=== PATIENT | female | born 2005 | race Caucasian/White ===

== ENCOUNTER 2024-02-01 12:55 | Emergency (ER) | payer OTHER, SELFPAY ==
[2024-02-01] VITALS (12 sets, daily range): BP systolic 116–147; BP diastolic 60–98; PULSE 67–90; RESP 17–21; TEMP 36.6; O2SAT 97–100; BMI 30.8
--- NOTE | 2024-02-01 13:19 | DI.CT.S_ITS ---
PROCEDURE: CT STROKE INDICATIONS: Positive BE-FAST, Stroke symptoms TECHNIQUE: Noncontrast 4.5 mm thick angled axial sections acquired from the foramen magnum to the vertex, with coronal reformats. For radiation dose reduction, the following was used: automated exposure control, adjustment of mA and/or kV according to patient size. COMPARISON: None. FINDINGS: Image quality: Mild streak artifact can be seen through the skull base. CSF spaces: Basal cisterns are patent. No extra-axial fluid collections. Ventricles are normal in size and shape. Brain: No midline shift. No intracranial masses or hemorrhage. Apple-white matter interface is normal. Skull and face: Calvarium and visualized facial bones are intact, without suspicious lesions. Sinuses: Visualized sinuses and mastoids are clear. IMPRESSION: No acute intracranial hemorrhage is seen. No acute intracranial pathology. Note: Case discussed by telephone with Dr. Almaraz at 1:47 p.m. [place] time on February 01, 2024. This study fulfills neurological imaging criteria for inclusion or exclusion of acute stroke therapies based on available published neurological imaging guidelines. Dictated by: Toñito Sherman M.D. on 02/01/2024 at 12:46 Approved by: Toñito Sherman M.D. on 02/01/2024 at 12:47
--- NOTE | 2024-02-01 13:19 | DI.CT.S_ITS ---
PROCEDURE: CT ANGIO HEAD AND NECK INDICATIONS: blurry vision right eye TECHNIQUE: After the administration of intravenous contrast, 1 mm thick sections acquired from the aortic arch through the [place] of [place]. 3-dimensional yukcbpu-neskyvkyy-bvtpxukdss (MIP) and/or volume rendering reformats were acquired of the central intracranial vasculature and neck separately. For radiation dose reduction, the following was used: automated exposure control, adjustment of mA and/or kV according to patient size. COMPARISON: [facility], CT, CT STROKE, 02/01/2024, 13:30. FINDINGS: Image quality: Diagnostic. BRAIN: CSF spaces: Ventricles are normal in size and shape. Basal cisterns are patent. No extra-axial fluid collections. Brain: No significant abnormality of the brain can be seen. Skull and face: Calvarium and facial bones appear intact, without suspicious lesions. Orbits appear normal. Sinuses: Sinuses and mastoids are clear. HEAD CT ANGIOGRAPHY: Anterior circulation: Intracranial internal carotid arteries are normal in size and flow. The flow within the paired anterior cerebral arteries is normal and symmetric. The flow within the middle cerebral arteries is normal and symmetric. The anterior communicating artery is seen. No aneurysms are seen. Posterior circulation: Visualized portions of the vertebral arteries demonstrate normal caliber, and join to form a normal appearing basilar artery. Flow within the posterior cerebral arteries is normal and symmetric. No aneurysms are seen. NECK CT ANGIOGRAPHY: Carotid system: The great vessels demonstrate a conventional anatomy as they arise from the aortic arch. The origins of the common carotid arteries appear patent. The common carotid arteries demonstrate normal caliber and courses. The bifurcation regions are both widely patent. The internal carotid arteries demonstrate normal calibers and courses. Posterior circulation: The origins of the vertebral arteries both appear widely patent. The more superior extracranial portions of both vertebral arteries also demonstrate normal courses and calibers. They join to form a normal appearing basilar artery. Soft tissues: Visualized neck soft tissues demonstrate no suspicious abnormalities. Bones: No suspicious bony lesions. Visualized cervical spine appears normally aligned. IMPRESSION: No significant intracranial arterial abnormality is seen. No significant abnormality is seen within the arteries of the neck. Any quantitative measurements of stenosis were performed using NASCET criteria. Dictated by: Robinson Jimenez M.D. on 02/01/2024 at 13:57 Approved by: Robinson Jimenez M.D. on 02/01/2024 at 13:59
--- NOTE | 2024-02-01 13:32 | ED.NEUROSD ---
HPI - Neuro Symptoms/Deficit General Chief Complaint: Eye Problems Stated Complaint: blurry, tunnel vision; sent by [facility] Time Seen by Provider: 02/01/24 13:22 Source: patient Mode of arrival: Ambulatory History of Present Illness HPI Narrative: Last well known 11:00 a.m. today. Patient here with sister. Patient had sudden onset bilateral blurriness. Without any headache or eye pain. It localized to the right eye. Now it has resolved. Patient's states had similar episode 2 months ago and seen at walk-in clinic. Denies any headache slurred speech facial droop numbness tingling or weakness to the limbs. No history high blood pressure hypercholesteremia. No family history of stroke with primary family. Patient is asymptomatic at this time. LMP now. Patient states recent stressors include boyfriend that just completed chemotherapy for cancer. Fast exam is negative On Anticoagulants: No Related Data Home Medications Medication Instructions Recorded Confirmed etonogestrel 68 mg subdermal mg subdermal 02/01/24 implant (Nexplanon) Allergies Allergy/AdvReac Type Severity Reaction Status Date / Time No Known Drug Allergies Allergy Verified 02/01/24 13:15 Review of Systems Review of Systems Narrative: GENERAL: negative chills, fatigue, malaise, fever, sweats. HEENT: negative sinus pain, ear pain, sore throat RESPIRATORY: negative dyspnea, cough CARDIOVASCULAR: negative chest pain, palpitations GASTROINTESTINAL: negative nausea, vomiting, abdominal pain : negative dysuria, frequency, hematuria MUSCULOSKELETAL: negative muscle or bony pain SKIN: negative rash, skin lesions NEUROLOGIC: negative weakness, numbness, positive blurry vision ROS Unobtainable: All systems reviewed & are unremarkable except as noted in HPI and below Hematologic/Lymphatic On Anticoagulants: No Patient History Social History Smoking Status: Never smoker Smoking Status: Never smoker alcohol intake frequency: other Substance Use Type: marijuana Exam Narrative Exam Narrative: GENERAL: in no distress, not toxic not dyspneic HEAD: Normocephalic. EYES: Pupils equal round PERRLA, no photophobia no papilledema, denies any blurry vision or double vision at this time. Able to isolate each eye and denies any blurry vision or double vision individually or together. ENT: Mucous membranes moist. NECK: Trachea midline. CARDIOVASCULAR: Regular rate and rhythm RESPIRATORY: Clear to auscultation. Breath sounds equal bilaterally. No wheezes, rales, or rhonchi. GASTROINTESTINAL: Abdomen soft, non-tender EXTREMITIES: No gross deformities. BACK: No flank tenderness. NEURO: AOx4. Clear speech no facial droop light touch intact bilateral face hands and legs. Strong equal stamp mounter. Negative pronator drift. Finger-nose intact bilaterally. SKIN: Warm and dry PSYCH: Not anxious, is cooperative Initial Vital Signs Initial Vital Signs: Vital Signs Temperature 98 F 02/01/24 13:12 Pulse Rate 70 02/01/24 13:12 Respiratory Rate 17 02/01/24 13:12 Blood Pressure 147/88 H 02/01/24 13:12 Pulse Oximetry 97 02/01/24 13:12 Oxygen Delivery Method Room Air 02/01/24 13:12 Scores NIH Stroke Scale Level of Conciousness: Alert, keenly responsive Ask month/age: Answers both questions correctly. Open/close eyes, close hand: Performs both tasks correctly Best gaze horizontal: Normal Visual martinez: No visual loss Facial palsy: Normal symetrical movement Left arm drift: No drift for full 10 sec Right arm drift: No drift for full 10 sec Left leg drift: No drift for full 5 sec Right leg drift: No drift for full 5 sec Limb ataxia: Absent Sensory on face/arms/legs: Normal, no sensory loss Best language: No aphasia, normal Dysarthria: Normal Extinction or inattention: No abnormality Total NIH Stroke scale score: 0 Course Orders Ordered: Discontinued Medications Lactated Ringer's (Lactated Ringers) 500 mls @ 1,000 mls/hr IV BOLUS ONE Stop: 02/01/24 14:03 Sodium Chloride (Normal Saline 0.9%) 500 mls @ 1,000 mls/hr IV BOLUS ONE Stop: 02/01/24 14:04 Last Infusion: 02/01/24 14:37 Dose: Infused Documented By: Admin: 02/01/24 14:06 Dose: 1,000 mls/hr Documented By: Ondansetron HCl (Ondansetron 4 Mg/2 Ml Inj) 4 mg IV NOW PRN PRN Reason: Nausea And Vomiting Ondansetron HCl (Ondansetron 4 Mg Odt) 4 mg SL NOW PRN PRN Reason: Nausea And Vomiting Vital Signs Vital signs: Vital Signs - 8 hr 02/01/24 13:12 02/01/24 13:23 02/01/24 13:23 Temperature 98 F Pulse Rate 70 Respiratory Rate 17 Blood Pressure 147/88 H 137/98 H Pulse Oximetry 97 97 Oxygen Delivery Method Room Air 02/01/24 13:37 02/01/24 14:01 02/01/24 14:02 Temperature Pulse Rate 77 86 90 Respiratory Rate 21 Blood Pressure Pulse Oximetry 100 98 99 Oxygen Delivery Method 02/01/24 14:02 02/01/24 14:30 02/01/24 14:53 Temperature Pulse Rate 89 74 Respiratory Rate Blood Pressure 128/68 Pulse Oximetry 98 99 Oxygen Delivery Method 02/01/24 15:00 02/01/24 15:01 02/01/24 15:01 Temperature Pulse Rate 83 67 Respiratory Rate Blood Pressure 121/60 Pulse Oximetry 100 99 Oxygen Delivery Method MDM - Neuro Symptoms/Deficit Lab Data 02/01/24 13:27 02/01/24 13:27 Labs: Lab Results 02/01/24 02/01/24 Range/Units 13:27 14:02 WBC 10.1 (4.5-11.0) X10^3/uL RBC 4.69 (4.0-5.2) X10^6/uL Hgb 13.9 (12.0-16.0) g/dL Hct 40.1 (36-46) % MCV 85.4 (80-100) fL MCH 29.5 (26-34) PG MCHC 34.6 (30-36) % RDW 13.4 (11.6-14.8) % Plt Count 334 (150-400) X10^3/uL Neut % (Auto) 69.8 (50-75) % Lymph % (Auto) 23.8 L (25-40) % Lamar % (Auto) 5.3 (3-14) % Eos % (Auto) 0.9 L (2-4) % Baso % (Auto) 0.2 (0-2) % Neut # (Auto) 7100 H (1451-5480) /uL Lymph # (Auto) 2400 (7318-7510) /uL Lamar # (Auto) 500 (0-900) /uL Eos # (Auto) 100 (0-450) /uL Baso # (Auto) 0 (0-100) /uL PT 11.4 (9.4-12.5) SECONDS INR 1.0 (0.9-1.3) APTT 35 (25.1-36.5) SECONDS Sodium 140 (137-145) mmol/L Potassium 3.9 (3.4-5.1) mmol/L Chloride 107 (98-107) mmol/L Carbon Dioxide 25 (22-32) mmol/L BUN 13 (7-17) mg/dL Creatinine 0.67 (0.52-1.04) mg/dL Estimated GFR > 60 (>60) mL/min BUN/Creatinine Ratio 19.4 (6-22) Glucose 96 (70-100) mg/dL Calcium 9.9 (8.4-10.2) mg/dL Magnesium 1.9 (1.6-2.3) mg/dL Total Bilirubin 0.6 (0.2-1.3) mg/dL AST 52 H (14-36) IU/L ALT 34 (<35) IU/L Alkaline Phosphatase 74 (38-126) U/L Total Creatine Kinase 157 H (30-135) U/L Troponin I < 0.012 (0.01-0.034) ng/mL Total Protein 8.4 H (6.3-8.2) g/dL Albumin 5.3 H (3.5-5.0) g/dL Globulin 3.1 (1.7-4.1) g/dL Albumin/Globulin Ratio 1.7 (1.0-2.8) U Opiates 300ng/mL cut Negative (Negative) Ur Oxycodone Screen Negative (Negative) Urine Methadone Screen Negative (Negative) Ur Barbiturates Screen Negative (Negative) U Tricyclic Antidepress Negative (Negative) Ur Phencyclidine Scrn Negative (Negative) Ur Amphetamines Screen Negative (Negative) U Methamphetamines Scrn Negative (Negative) Ur MDMA Scrn (Ecstasy) Negative (Negative) U Benzodiazepines Scrn Negative (Negative) Urine Cocaine Screen Negative (Negative) U Marijuana (THC) Screen Positive H (Negative) Urine pH Normal (Normal) Urine Specific [place] Normal (Normal) Ur Creatinine Normal (Normal) Point of Care Testing Test Results Negative Urine Dip Bedside Urine Glucose Negative Bedside Urine Bilirubin - Negative Bedside Urine Ketone - Negative Urine Specific [place] 1.005 Bedside Urine Occult Blood - Negative Bedside Urine pH 7.0 Bedside Urine Protein - Negative Bedside Urine Urobilinogen - Negative Bedside Urine Nitrite - Negative Bedside Urine Leukocytes - Negative Esterase Imaging Data CT scan - head: Radiologist's Impression: [address] [address] [address] Scan Report Signed Patient: Abby Hoyt MR#: [id number] : 2005 Acct:[id number] Age/Sex: 18 / F Date of Service: 02/01/24 Loc: ED Accession Number: [id number] Procedure: CT Stroke Ordering Provider: Tunde Almaraz MD PROCEDURE: CT STROKE INDICATIONS: Positive BE-FAST, Stroke symptoms TECHNIQUE: Noncontrast 4.5 mm thick angled axial sections acquired from the foramen magnum to the vertex, with coronal reformats. For radiation dose reduction, the following was used: automated exposure control, adjustment of mA and/or kV according to patient size. COMPARISON: None. FINDINGS: Image quality: Mild streak artifact can be seen through the skull base. CSF spaces: Basal cisterns are patent. No extra-axial fluid collections. Ventricles are normal in size and shape. Brain: No midline shift. No intracranial masses or hemorrhage. Apple-white matter interface is normal. Skull and face: Calvarium and visualized facial bones are intact, without suspicious lesions. Sinuses: Visualized sinuses and mastoids are clear. IMPRESSION: No acute intracranial hemorrhage is seen. No acute intracranial pathology. Note: Case discussed by telephone with Dr. Almaraz at 1:47 p.m. [place] time on February 01, 2024. This study fulfills neurological imaging criteria for inclusion or exclusion of acute stroke therapies based on available published neurological imaging guidelines. Dictated by: Toñito Sherman M.D. on 02/01/2024 at 12:46 Approved by: Toñito Sherman M.D. on 02/01/2024 at 12:47 CTA - brain/neck: Radiologist's Impression: [address] [address] [address] Scan Report Signed Patient: Abby Hoyt MR#: [id number] : 2005 Acct:[id number] Age/Sex: 18 / F Date of Service: 02/01/24 Loc: ED Accession Number: [id number] Procedure: CT angio head and neck Ordering Provider: Tunde Almaraz MD PROCEDURE: CT ANGIO HEAD AND NECK INDICATIONS: blurry vision right eye TECHNIQUE: After the administration of intravenous contrast, 1 mm thick sections acquired from the aortic arch through the [place] of [place]. 3-dimensional iwhbuky-namtdjurm-vfvcxeefrb (MIP) and/or volume rendering reformats were acquired of the central intracranial vasculature and neck separately. For radiation dose reduction, the following was used: automated exposure control, adjustment of mA and/or kV according to patient size. COMPARISON: [facility], CT, CT STROKE, 02/01/2024, 13:30. FINDINGS: Image quality: Diagnostic. BRAIN: CSF spaces: Ventricles are normal in size and shape. Basal cisterns are patent. No extra-axial fluid collections. Brain: No significant abnormality of the brain can be seen. Skull and face: Calvarium and facial bones appear intact, without suspicious lesions. Orbits appear normal. Sinuses: Sinuses and mastoids are clear. HEAD CT ANGIOGRAPHY: Anterior circulation: Intracranial internal carotid arteries are normal in size and flow. The flow within the paired anterior cerebral arteries is normal and symmetric. The flow within the middle cerebral arteries is normal and symmetric. The anterior communicating artery is seen. No aneurysms are seen. Posterior circulation: Visualized portions of the vertebral arteries demonstrate normal caliber, and join to form a normal appearing basilar artery. Flow within the posterior cerebral arteries is normal and symmetric. No aneurysms are seen. NECK CT ANGIOGRAPHY: Carotid system: The great vessels demonstrate a conventional anatomy as they arise from the aortic arch. The origins of the common carotid arteries appear patent. The common carotid arteries demonstrate normal caliber and courses. The bifurcation regions are both widely patent. The internal carotid arteries demonstrate normal calibers and courses. Posterior circulation: The origins of the vertebral arteries both appear widely patent. The more superior extracranial portions of both vertebral arteries also demonstrate normal courses and calibers. They join to form a normal appearing basilar artery. Soft tissues: Visualized neck soft tissues demonstrate no suspicious abnormalities. Bones: No suspicious bony lesions. Visualized cervical spine appears normally aligned. IMPRESSION: No significant intracranial arterial abnormality is seen. No significant abnormality is seen within the arteries of the neck. Any quantitative measurements of stenosis were performed using NASCET criteria. Dictated by: Robinson Jimenez M.D. on 02/01/2024 at 13:57 Approved by: Robinson Jimenez M.D. on 02/01/2024 at 13:59 MRI brain: Radiologist's Impression: [address] [address] Magnetic Resonance Report Signed Patient: Abby Hoyt MR#: [id number] : 2005 Acct:[id number] Age/Sex: 18 / F Date of Service: 02/01/24 Loc: ED Accession Number: [id number] Procedure: MR head/brain wo con Ordering Provider: Tunde Almaraz MD PROCEDURE: MR HEAD/BRAIN WO CON INDICATIONS: Blurry vision/please evaluate for stroke TECHNIQUE: Noncontrast axial T1 spin echo, axial T2 fast spin echo, sagittal and axial FLAIR, coronal T2 fast spin echo, axial gradient echo, axial diffusion and ADC through the brain. COMPARISON: [facility], CT, CT ANGIO HEAD AND NECK, 02/01/2024, 13:30. [facility], CT, CT STROKE, 02/01/2024, 13:30. FINDINGS: Image quality: This examination is limited by involuntary motion artifact. CSF Spaces: Basal cisterns are patent. No extra-axial fluid collections. Ventricles are normal in size and shape. Brain: No intracranial masses or hemorrhage. Apple/white matter interface is normal. Brainstem appears normal. Diffusion-weighted images demonstrate no acute infarct. No chronic ischemic insults. Normal intravascular flow voids are present. Skull and face: Calvarium has normal marrow signal. Orbits appear normal. Sinuses: Sinuses and mastoids are clear. IMPRESSION: No findings of acute or subacute infarction can be seen. Dictated by: Toñito Sherman M.D. on 02/01/2024 at 13:57 Approved by: Toñito Sherman M.D. on 02/01/2024 at 13:58 [facility] Narrative Medical decision making narrative: Last well known 11:00 a.m. today. Patient here with sister. Patient had sudden onset bilateral my blurriness. Without any headache or eye pain. It localized just of the right eye. Now it has resolved. Patient's states had similar episode 2 months ago and seen at walk-in clinic. Denies any headache slurred speech facial droop numbness tingling or weakness to the limbs. No history high blood pressure hypercholesteremia. No family history of stroke with primary family. Patient is asymptomatic at this time. LMP now. Patient states recent stressors include boyfriend that just completed chemotherapy for cancer. Fast exam is negative After history and exam CT head CT angiogram head and neck CBC CMP normal saline MRI brain MDM Medical records reviewed: Differential considered: Includes but not limited to Lab Test results independently reviewed as above. Pertinent findings: WBC 10.1 hemoglobin 13.9 INR 1.0 sodium 140 potassium 3.9 AST 52 ALT 34 troponin less than 0.012 drug screen positive marijuana, negative Imaging studies independently reviewed: CT head CT angiogram head neck no acute finding, MRI brain no acute finding Consultations: 3:45 p.m.. Spoke with [facility] tele stroke Neurology, dr garcia, no further neurology workup indicated at this time. This could be ocular migraine. No admission indicated this time. No medications recommended at this time. Patient to follow up with primary care. Treatments: Normal saline Re-evaluations: 3:55 p.m.. Reviewed with patient and sister results and my discussion with neurology services with [facility]. Patient is comfortable with discharge home and follow up with primary care for referral number has been provided for her to call tomorrow. She describes her visual disturbance as if looking in a distance in the heat waves radiating upwards from the ground.. Never had any pain with this. No other associated symptoms. Return precautions reviewed and she desires discharge home Discussion: Appropriate for discharge home. Exam and laboratory studies imaging studies are reassuring. Return precautions reviewed patient and discussed with patient that likely ocular migraine. She has been under stress recently. Return precautions reviewed and patient desires discharge home. Patient remained on manager monitoring. No arrhythmia. Was in sinus rhythm Diagnosis: Blurry vision Discharge Plan Departure Patient Disposition: Home Clinical Impression: Blurred vision, bilateral Instructions: DI for Visual Field Disturbances Activity Restrictions/Additional Instructions: Today exam and laboratory studies and imaging studies are reassuring. Neurology service was contacted. It does not appear to be a stroke. This could be development of ocular migraine. Please see family doctor in a week for re-evaluation. Also, please do make appointment with manager corporate marketing to have your eyes checked. Return if worse if any questions or concerns. No prescriptions or medications are indicated at this time. Prescriptions: No Action Nexplanon 68 mg Implant SUBDERMAL Referrals: [facility] Resources [Outside] Miscellaneous,MD Darlin [Primary Care Provider] - Stand Alone Forms: Patient Portal/API
[2024-02-01 13:33] LABS: Add Manual Diff / Slide Review NO; Basophils Absolute Auto 0 /uL (0-100); Basophils Percent Auto 0.2 % (0-2); Eosinophils Absolute Auto 100 /uL (0-450); Eosinophils Percent Auto 0.9 % (2-4); Hematocrit 40.1 % (36-46); Hemoglobin 13.9 g/dL (12.0-16.0); Lymphocytes Absolute Auto 2400 /uL (1100-4500); Lymphocytes Percent Auto 23.8 % (25-40); Mean Corpuscular HGB Conc 34.6 % (30-36); Mean Corpuscular Hemoglobin 29.5 PG (26-34); Mean Corpuscular Volume 85.4 fL (80-100); Monocytes Absolute Auto 500 /uL (0-900); Monocytes Percent Auto 5.3 % (3-14); Neutrophils Absolute Auto 7100 /uL (1500-7000); Neutrophils Percent Auto 69.8 % (50-75); Platelet Count 334 X10^3/uL (150-400); Red Blood Cell Count 4.69 X10^6/uL (4.0-5.2); Red Cell Distribution Width 13.4 % (11.6-14.8); White Blood Cell Count 10.1 X10^3/uL (4.5-11.0)
[2024-02-01 13:43] LABS: Prothrombin Time 11.4 SECONDS (9.4-12.5)
[2024-02-01 13:46] LABS: PTT Partial Thromboplastin Tim 35 SECONDS (25.1-36.5)
[2024-02-01 13:49] LABS: Alanine Aminotransferase 34 IU/L (<35); Albumin 5.3 g/dL (3.5-5.0); Albumin Globulin Ratio 1.7 (1.0-2.8); Alkaline Phosphatase 74 U/L (38-126); Aspartate Aminotransferase 52 IU/L (14-36); BUN Creatinine Ratio 19.4 (6-22); Bilirubin Total 0.6 mg/dL (0.2-1.3); Blood Urea Nitrogen 13 mg/dL (7-17); Calcium 9.9 mg/dL (8.4-10.2); Carbon Dioxide 25 mmol/L (22-32); Chloride 107 mmol/L (98-107); Creatine Kinase 157 U/L (30-135); Estimated Glomerular Filt Rate > 60 mL/min (>60); Globulin 3.1 g/dL (1.7-4.1); Glucose 96 mg/dL (70-100); HEMOLYSIS < 15 (0-50); Magnesium 1.9 mg/dL (1.6-2.3); Potassium 3.9 mmol/L (3.4-5.1); Sodium 140 mmol/L (137-145); Total Protein 8.4 g/dL (6.3-8.2)
[2024-02-01 14:00] LABS: Troponin I < 0.012 ng/mL (0.01-0.034)
[2024-02-01] MEDS: SODIUM CHLORIDE 0.9% 500 ML 1000 ML IV (14:06)
[2024-02-01 14:17] LABS: Ur Creatinine Normal (Normal); Ur Specific Gravity Normal (Normal); Urine Amphetamines Negative (Negative); Urine Barbiturates Negative (Negative); Urine Benzodiazepines Negative (Negative); Urine Cocaine Negative (Negative); Urine MDMA Negative (Negative); Urine Methadone Negative (Negative); Urine Methamphetamines Negative (Negative); Urine Opiates Negative (Negative); Urine Oxycodone Negative (Negative); Urine Phencyclidine Negative (Negative); Urine THC Positive (Negative); Urine Tricyclic Antidepressant Negative (Negative); Urine pH Normal (Normal)
--- NOTE | 2024-02-01 15:30 | DI.MRI.S_ITS ---
PROCEDURE: MR HEAD/BRAIN WO CON INDICATIONS: Blurry vision/please evaluate for stroke TECHNIQUE: Noncontrast axial T1 spin echo, axial T2 fast spin echo, sagittal and axial FLAIR, coronal T2 fast spin echo, axial gradient echo, axial diffusion and ADC through the brain. COMPARISON: [facility], CT, CT ANGIO HEAD AND NECK, 02/01/2024, 13:30. [facility], CT, CT STROKE, 02/01/2024, 13:30. FINDINGS: Image quality: This examination is limited by involuntary motion artifact. CSF Spaces: Basal cisterns are patent. No extra-axial fluid collections. Ventricles are normal in size and shape. Brain: No intracranial masses or hemorrhage. Apple/white matter interface is normal. Brainstem appears normal. Diffusion-weighted images demonstrate no acute infarct. No chronic ischemic insults. Normal intravascular flow voids are present. Skull and face: Calvarium has normal marrow signal. Orbits appear normal. Sinuses: Sinuses and mastoids are clear. IMPRESSION: No findings of acute or subacute infarction can be seen. Dictated by: Toñito Sherman M.D. on 02/01/2024 at 13:57 Approved by: Toñito Sherman M.D. on 02/01/2024 at 13:58
== END 2024-02-01 16:11 | disposition home or self-care (01) ==
PROVIDERS: Emergency Provider Emergency Medicine
DX: H53.8 Other visual disturbances (principal); R29.700 NIHSS score 0
CPT/HCPCS: 36415; 70450; 70496; 70498; 70551; 80053; 80305; 81003; 81025; 82550; 83735; 84484; 85025; 85610; 85730; 96360; 99284; 99285